=== PATIENT | female | born 1950 | race Caucasian/White ===

== ENCOUNTER 2023-11-09 13:16 | Outpatient (CLI) | payer MEDICARE, BC | END 2023-11-09 13:17 | disposition home or self-care (01) | LOC: CSHMAMMO 13:16 | PROVIDERS: ATTEND Nurse Practitioner Acute Care | DX: Z12.31 Encounter for screening mammogram for malignant neoplasm of breast (principal); Z13.820 Encounter for screening for osteoporosis; Z80.3 Family history of malignant neoplasm of breast; Z85.820 Personal history of malignant melanoma of skin; Z78.0 Asymptomatic menopausal state | CPT/HCPCS: 77063; 77067; 77080 ==

== ENCOUNTER 2024-05-16 08:15 | Outpatient (CLI) | payer MEDICARE, BC | END 2024-05-16 08:16 | disposition home or self-care (01) | LOC: CSHRAD 08:15 | PROVIDERS: ATTEND Physician Assistant Medical | DX: K21.9 Gastro-esophageal reflux disease without esophagitis (principal); K59.00 Constipation, unspecified; R13.10 Dysphagia, unspecified; K22.4 Dyskinesia of esophagus | CPT/HCPCS: 74220 ==

== ENCOUNTER 2024-05-17 09:18 | Outpatient (CLI) | payer MEDICARE, BC | END 2024-05-17 09:19 | disposition home or self-care (01) | LOC: CSHCT 09:18 | PROVIDERS: ATTEND Otolaryngology Plastic Surgery within the Head & Neck | DX: R06.1 Stridor (principal); R59.0 Localized enlarged lymph nodes; R91.8 Other nonspecific abnormal finding of lung field | CPT/HCPCS: 70490; 71250 ==

== ENCOUNTER 2025-03-24 13:40 | Outpatient (CLI) | payer MEDICARE, BC | END 2025-03-24 13:41 | disposition home or self-care (01) | LOC: CSHMRI 13:40 | PROVIDERS: ATTEND Internal Medicine Hematology & Oncology | DX: C34.90 Malignant neoplasm of unspecified part of unspecified bronchus or lung (principal); C18.0 Malignant neoplasm of cecum; D50.0 Iron deficiency anemia secondary to blood loss (chronic); R90.89 Other abnormal findings on diagnostic imaging of central nervous system | CPT/HCPCS: 70553; 76376 ==

== ENCOUNTER 2025-06-03 11:23 | Outpatient (CLI) | payer MEDICARE, BC | END 2025-06-03 11:24 | disposition home or self-care (01) | LOC: CSHRAD 11:23 | PROVIDERS: ATTEND Internal Medicine | DX: C34.32 Malignant neoplasm of lower lobe, left bronchus or lung (principal); R06.09 Other forms of dyspnea; C18.0 Malignant neoplasm of cecum; D50.0 Iron deficiency anemia secondary to blood loss (chronic); D70.1 Agranulocytosis secondary to cancer chemotherapy; R91.8 Other nonspecific abnormal finding of lung field | CPT/HCPCS: 71046; 80053; 83735 ==

== ENCOUNTER 2025-06-24 08:53 | Outpatient (CLI) | payer MEDICARE, BC ==
[2025-06-24] MEDS ORDERED: Iopamidol 300 61% 100 ML VIAL FS ONE (10:43)
== END 2025-06-24 08:54 | disposition home or self-care (01) ==
LOC: CSHCT 08:53
PROVIDERS: ATTEND Internal Medicine Hematology & Oncology
DX: C34.32 Malignant neoplasm of lower lobe, left bronchus or lung (principal); C18.0 Malignant neoplasm of cecum; D50.0 Iron deficiency anemia secondary to blood loss (chronic); D70.1 Agranulocytosis secondary to cancer chemotherapy
CPT/HCPCS: 71260; 74177

== ENCOUNTER 2025-07-02 12:10 | Emergency (ER) | payer MEDICARE, BC ==
[2025-07-02] MEDS ORDERED: HYDROcodone/Acetaminophen 5/325 mg Tablet ONE (12:57)
== END 2025-07-02 14:10 | disposition home or self-care (01) ==
LOC: CSHERS 12:10
DX: S63.501A Unspecified sprain of right wrist, initial encounter (principal); I10 Essential (primary) hypertension; Z87.891 Personal history of nicotine dependence; W22.8XXA Striking against or struck by other objects, initial encounter
CPT/HCPCS: 99283